=== PATIENT | female | born 1985 | race Caucasian/White ===

== ENCOUNTER 2018-12-23 16:30 | Emergency (ER) | payer OTHER ==
--- NOTE | 2018-12-23 16:40 | UC ---
Ear Complaint HPI - HPI Summary HPI Summary: 33 yo female presents with right ear pain. She tells me that for the last week or so she has had some crackling to her right ear. The past 2 days she has developed some pressure and discomfort here as well as a mild headache on the right side. She states that she does have allergies, but has not been taking anything OTC for this. Denies fever, chills, sinus symptoms, sore throat, cough. - History of Current Complaint Stated Complaint: EAR PAIN Time Seen by Provider: 12/23/18 16:40 Hx Obtained From: Patient Onset/Duration: Gradual Onset Severity Initially: Mild Severity Currently: Mild Pain Intensity: 3 Pain Scale Used: 0-10 Numeric - Allergies/Home Medications Allergies/Adverse Reactions: Allergies Allergy/AdvReac Type Severity Reaction Status Date / Time No Known Allergies Allergy Verified 12/23/18 16:50 Home Medications: Home Medications Bupropion XL* [Wellbutrin XL *] 150 mg PO DAILY 12/23/18 [History Confirmed 02/03] Onabotulinimtoxina 100 UNITS* [Botox 100 UNITS*] 100 units .SEE ORDER 12/23/18 [ History] PMH/Surg Hx/FS Hx/Imm Hx Neurological History: Migraine Psychological History: Anxiety, Depression - Surgical History Surgical History: None - Family History Known Family History: Positive: None - Social History Occupation: Employed Full-time Lives: With Family Alcohol Use: Occasionally Substance Use Type: None Smoking Status (MU): Never Smoked Tobacco Review of Systems All Other Systems Reviewed And Are Negative: Yes Constitutional: Positive: Negative Skin: Positive: Negative Eyes: Positive: Negative ENT: Positive: Ear Ache Respiratory: Positive: Negative Cardiovascular: Positive: Negative Gastrointestinal: Positive: Negative Neurovascular: Positive: Negative Neurological: Positive: Negative Psychological: Positive: Negative Physical Exam - Summary Physical Exam Summary: GENERAL: NAD. WDWN. No pain distress. SKIN: No rashes, sores, lesions, or open wounds. HEENT: Head: AT/NC Eyes: EOM intact. Conjunctiva clear without inflammation or discharge. Ears: Hearing grossly normal. TMs intact, no bulging, erythema, or edema. Right TM with clear fluid behind. Nose: Nasal mucosa pink and moist. NTTP maxillary and frontal sinus. Throat: Posterior oropharynx without exudates, erythema, or tonsillar enlargement. Uvula midline. NECK: Supple. Nontender. No lymphadenopathy. CHEST: CTAB. No r/r/w. No accessory muscle use. Breathing comfortably and in no distress. CV: RRR. Without m/r/g. Pulses intact. Cap refill <2seconds NEURO: Alert. PSYCH: Age appropriate behavior. Triage Information Reviewed: Yes Vital Signs: Vital Signs: Temp Pulse Resp BP Pulse Ox 100.2 F 90 18 114/80 97 12/23/18 16:46 12/23/18 16:46 12/23/18 16:46 12/23/18 16:46 12/23/18 16:46 Vital Signs Reviewed: Yes Ear Complaint Course/Dx - Course Course Of Treatment: Right ear serous otitis media/Eustachian tube dysfunction. Will rx for claritin and flonase at this time and have her f/u if symptoms worsen or do not improve. - Differential Dx/Diagnosis Provider Diagnosis: Serous otitis media Discharge - Sign-Out/Discharge Documenting (check all that apply): Patient Departure All imaging exams completed and their final reports reviewed: No Studies - Discharge Plan Condition: Stable Disposition: HOME Prescriptions: Fluticasone NASAL SPRAY 50MCG* [Flonase NASAL SPRAY 50MCG*] 2 spray BOTH NARES DAILY #1 btl Loratadine [Claritin] 10 mg PO DAILY #14 tablet Patient Education Materials: Serous Otitis Media (ED) Referrals: No Primary Care Phys,NOPCP [Primary Care Provider] - Additional Instructions: If you develop a fever, shortness of breath, chest pain, new or worsening symptoms - please call your PCP or go to the ED immediately. Your ear did not appear infected today, but you do have some clear fluid behind your ear which could be causing the pressure/pain/crackling. - Billing Disposition and Condition Condition: STABLE Disposition: Home
[2018-12-23 16:51] VITALS: BP 114/80
== END 2018-12-23 17:24 | disposition home or self-care (01) ==
LOC: UCEAST 16:30
DX: H65.91 Unspecified nonsuppurative otitis media, right ear (principal); F32.9 Major depressive disorder, single episode, unspecified
CPT/HCPCS: 99202; G0463